=== PATIENT | female | born 1990 | race Caucasian/White ===

== ENCOUNTER 2022-01-12 13:45 | Emergency (ER) | payer SELFPAY ==
[2022-01-12] MEDS ORDERED: HYDROmorphone 0.5 MG/0.5 ML Syringe IVPUSH ONE (13:58)
[2022-01-12] MEDS ORDERED: Sodium Chloride 0.9% 1,000 ML IV ONE (14:03)
[2022-01-12] MEDS ORDERED: Take Home: Acetaminophen/HYDROcodone 325-5 MG, 2 Tab Pack PO ONE (14:55)
== END 2022-01-12 15:27 | disposition home or self-care (01) ==
LOC: CC.ED 13:45
DX: O99.891 Other specified diseases and conditions complicating pregnancy (principal); N20.0 Calculus of kidney; Z3A.12 12 weeks gestation of pregnancy
CPT/HCPCS: 36415; 80053; 81001; 85025; 87086; 96361; 96374; 99284; 99284-25; A9270-GY; J1170; J7030